=== PATIENT | male | born 1970 | race Caucasian/White ===

== ENCOUNTER → 2018-10-20 | Outpatient (CLI) | payer BC ==
[2018-10-20 07:06] LABS: Source, Urine Clean Catch
[2018-10-20 07:51] LABS: Bacteria Not Seen /hpf; Red Blood Cells, Urine 0-2 /hpf (0-2); Squamous Epithelial Cells Rare /hpf (Few); White Blood Cells, Urine Not Seen /hpf (0-5)
== END | disposition home or self-care (01) ==
LOC: LAB 07:04 → LAB SHORT 07:04
PROVIDERS: Nurse Practitioner Family
DX: R31.21 Asymptomatic microscopic hematuria (principal)
CPT/HCPCS: 81015

== ENCOUNTER 2020-10-18 07:35 | Day surgery (SDC) | payer BC ==
[~2020-10-18] VITALS: Ht 177.8 cm; Wt 79.7 kg
[~2020-10-18 07:35] MED LIST: AMLO10 PO; LOSARTAN-HCTZ1 EACH PO
[2020-10-18] MEDS ORDERED: METO50ER PO (07:55)
[2020-10-18] MEDS ORDERED: OLME20 PO (07:55)
[2020-10-18] MEDS ORDERED: CLON.5 PO (07:56)
== END 2020-10-18 10:00 | disposition home or self-care (01) ==
LOC: ORSCSDS 07:35
PROVIDERS: Internal Medicine Gastroenterology
PROC: 0DBH8ZX Excision of Cecum, Via Natural or Artificial Opening Endoscopic, Diagnostic (ICD-10-PCS; principal; 2020-10-18 09:00)
PROC: 0DBK8ZX Excision of Ascending Colon, Via Natural or Artificial Opening Endoscopic, Diagnostic (ICD-10-PCS; principal; 2020-10-18 09:00)
DX: Z12.11 Encounter for screening for malignant neoplasm of colon (principal); D12.0 Benign neoplasm of cecum; D12.2 Benign neoplasm of ascending colon; I10 Essential (primary) hypertension; Z87.891 Personal history of nicotine dependence; Z79.899 Other long term (current) drug therapy
CPT/HCPCS: 88305; J2250; J2704; J7120

== ENCOUNTER 2024-05-05 11:37 | Day surgery (SDC) | payer BC ==
[~2024-05-05] VITALS: Ht 177.8 cm; Wt 79.4 kg
[2024-05-05] VITALS (12 sets, daily range): BP systolic 132–159; BP diastolic 80–96
[~2024-05-05 11:37] MED LIST changes: +ASPI81CH PO; +CLON.5 PO; +Crestor40 MG PO; +Dexamethasone Sod Phos 10 MG/ML 1ML VIAL ONE; +FentaNYL Citrate 50 MCG/ML 5 ML Injection ONE; +METO50ER PO; +OLME20 PO; +Ondansetron HCl 2 MG / ML 2ML Vial ONE; +Rocuronium Bromide 10 MG/ML 5ML Injection IV ONE; +Sugammadex Sodium 200 MG/2ML SDV (100 MG/ML) ONE; +VITAMIN D5000 UNIT PO; +propofoL 20 ML IV ONE
[2024-05-05] MEDS ORDERED: CeFAZolin Sodium 2,000 MG in NS 100 ML IV SCH (12:05)
[2024-05-05] MEDS ORDERED: Lactated Ringer's 1,000 ML IV SCH (12:05)
[2024-05-05] MEDS ORDERED: CENTRUM SILVER1 EAC2 PO (12:20)
[2024-05-05] MEDS ORDERED: Bupivacaine 0.5% HCl 5 MG/ML 30MLVIAL ONE (12:34)
[2024-05-05] MEDS ORDERED: Ketorolac Tromethamine 30mg Vial ONE (14:42)
[2024-05-05] MEDS ORDERED: FentaNYL Citrate 50 MCG/ML 2 ML Injection ONE (14:42)
[2024-05-05] MEDS ORDERED: HYDROcodone 5-APAP 325 TAB PO PRN (15:20)
--- NOTE | 2024-05-05 16:03 | NUR ---
DISCHARGE NOTE PT A&OX4, BREATHING RA, VSS, ICE TO OPERATIVE SITE, TOLERATING PO FLUIDS AND FOOD. PO PAIN PILL GIVEN PER MD ORDERS. Patient up to Ambulate independently. Gait steady. Discharge instructions reviewed with patient. Patient verbalizes understanding. Copy given to patient to take home. Dressing to procedure site clean, dry, intact with no visible drainage, swelling, erythema or bruising noted. AT BEDSIDE. Discharged via wheelchair to private car for ride home.
== END 2024-05-05 16:00 | disposition home or self-care (01) ==
LOC: ORSCMMR 11:37 → ORD 13:15 → ORSCMMR 16:00
PROVIDERS: Surgery
PROC: 8E0W4CZ Robotic Assisted Procedure of Trunk Region, Percutaneous Endoscopic Approach (ICD-10-PCS; principal; 2024-05-05 13:15)
PROC: 0YU54JZ Supplement Right Inguinal Region with Synthetic Substitute, Percutaneous Endoscopic Approach (ICD-10-PCS; principal; 2024-05-05 13:15)
DX: K40.90 Unilateral inguinal hernia, without obstruction or gangrene, not specified as recurrent (principal); I10 Essential (primary) hypertension; E78.5 Hyperlipidemia, unspecified; F17.210 Nicotine dependence, cigarettes, uncomplicated; Z79.899 Other long term (current) drug therapy; F41.9 Anxiety disorder, unspecified
CPT/HCPCS: A9270; C1781; J0690; J1100; J1885; J2405; J2704; J3010; J7120